=== PATIENT | female | born 1960 | race Caucasian/White ===

== ENCOUNTER → 2023-01-28 | Outpatient (CLI) | payer OTHER ==
[~2023-01-28] MED LIST: ACETAMINOPHEN 325 MG TAB ONE; IOPAMIDOL 370 MG/ML 100 ML INFUS..BTL INJ ONE; NITROGLYCERIN 0.4 MG SUBL ONE; SODIUM CHLORIDE 0.9% 100 ML ONE
[2023-01-28 08:39] LABS: CREATININE, SERUM 0.81 mg/dL (0.57-1.11)
== END ==
LOC: CT 07:36
PROVIDERS: ATTEND Family Medicine
DX: E78.5 Hyperlipidemia, unspecified (principal); Z82.49 Family history of ischemic heart disease and other diseases of the circulatory system
CPT/HCPCS: 36415; 75574; 82565; 84520; J7050; Q9967

== ENCOUNTER → 2023-02-08 | Outpatient (CLI) | payer OTHER | LOC: CT 08:33 | PROVIDERS: ATTEND Family Medicine | DX: Z13.820 Encounter for screening for osteoporosis (principal); R91.8 Other nonspecific abnormal finding of lung field | CPT/HCPCS: 71250; 77080 ==

== ENCOUNTER → 2023-06-02 | Outpatient (CLI) | payer SELFPAY | LOC: RAD 06-01 07:54 | PROVIDERS: ATTEND Nurse Practitioner | DX: Q21.19 Other specified atrial septal defect (principal) | CPT/HCPCS: 93306 ==